=== PATIENT | male | born 1995 | race Caucasian/White ===

== ENCOUNTER 2016-10-11 19:42 | Observation (INO) | payer OTHER ==
[~2016-10-11] VITALS: Ht 190.5 cm; Wt 77.0 kg
--- NOTE | 2016-10-11 20:05 | PD ---
HPI Chief Complaint: abdominal pain Time Seen by Provider: 19:56 Travel History International Travel<30 days: No Contact w/Intl Traveler<30days: No History of Present Illness HPI This is a 21 year old male who presents to the emergency department with 30 minutes of vomiting and subsequently developed left upper quadrant abdominal pain. The pain is 6/10, constant, sharp, non-radiating. The patient is here from [facility] and is currently in a detoxification program. He does have GERD and he took milk of magnesia and zofran but his symptoms did not improve. He had a normal bowel movement earlier today. He denies any fevers or chills. PFSH Past Medical History Medical History: Denies Significant Hx Social History Tobacco Use: Yes (cocaine, marijuana, xanax) Substance Use: Yes Allergies-Medications (Allergen,Severity, Reaction): Coded Allergies: No Known Allergies (Unverified , 10/11/16) Reported Meds & Prescriptions Reported Meds & Active Scripts Active Reported Zoloft (Sertraline HCl) 100 Mg Tab 100 Mg PO DAILY Review of Systems Except as stated in HPI: all other systems reviewed are Neg Physical Exam Narrative GENERAL:Well appearing SKIN: Diaphoretic HEAD: Atraumatic. Normocephalic. EYES: Pupils equal and round. No injection or drainage. ENT: Moist mucous membranes NECK: Trachea midline. CARDIOVASCULAR: Regular rate and rhythm. No murmur appreciated. RESPIRATORY: Clear to auscultation. Breath sounds equal bilaterally. GASTROINTESTINAL: Abdomen soft, Tender to palpation in the left upper quadrant with guarding. MUSCULOSKELETAL: No obvious deformities. NEUROLOGICAL: Awake and alert. No obvious cranial nerve deficits. Moving all extremities PSYCHIATRIC: Appropriate mood and affect; insight and judgment normal. Data Data Last Documented VS Vital Signs Date Time Temp Pulse Resp B/P (MAP) Pulse Ox O2 Delivery O2 Flow Rate FiO2 10/12/16 01:00 77 16 118/61 (80) 97 Room Air 10/11/16 20:08 99.1 Orders Orders Chest, Single Ap (10/11/16 ) Complete Blood Count With Diff (10/11/16 20:05) Comprehensive Metabolic Panel (10/11/16 20:05) ^ Insert Iv (10/11/16 20:05) Lipase (10/11/16 20:05) Al-Mag Hy-Si 40-40-4 Mg/Ml Liq (Mag-Al P (10/11/16 20:15) Lidocaine 2% Viscous (Xylocaine 2% Visco (10/11/16 20:15) Skhkx-Giissl-Hyhyqh-Pb Liq ( Liq (10/11/16 20:15) Sodium Chlor 0.9% 1000 Ml Inj (Ns 1000 M (10/11/16 20:15) Ct Abd/Pel W Iv Contrast(Rout) (10/11/16 ) Hydromorphone Pf Inj (Dilaudid Pf Inj) (10/11/16 22:45) Iohexol 350 Inj (Omnipaque 350 Inj) (10/11/16 23:11) Act Partial Throm Time (Ptt) (10/12/16 00:10) Prothrombin Time / Inr (Pt) (10/12/16 00:10) Acetaminophen (Tylenol) (10/12/16 01:00) Admit Order (Ed Use Only) (10/12/16 01:06) Labs Laboratory Tests Test 10/11/16 20:15 10/12/16 00:45 White Blood Count 11.4 TH/MM3 Red Blood Count 5.28 MIL/MM3 Hemoglobin 15.9 GM/DL Hematocrit 46.1 % Mean Corpuscular Volume 87.3 FL Mean Corpuscular Hemoglobin 30.1 PG Mean Corpuscular Hemoglobin Concent 34.4 % Red Cell Distribution Width 12.7 % Platelet Count 204 TH/MM3 Mean Platelet Volume 8.3 FL Neutrophils (%) (Auto) 62.8 % Lymphocytes (%) (Auto) 28.2 % Monocytes (%) (Auto) 6.7 % Eosinophils (%) (Auto) 1.4 % Basophils (%) (Auto) 0.9 % Neutrophils # (Auto) 7.1 TH/MM3 Lymphocytes # (Auto) 3.2 TH/MM3 Monocytes # (Auto) 0.8 TH/MM3 Eosinophils # (Auto) 0.2 TH/MM3 Basophils # (Auto) 0.1 TH/MM3 CBC Comment AUTO DIFF Differential Total Cells Counted 100 Neutrophils % (Manual) 53 % Band Neutrophils % 15 % Lymphocytes % 26 % Monocytes % 5 % Other Cells % 1 % Neutrophils # (Manual) 7.8 TH/MM3 Differential Comment FINAL DIFF MANUAL Atypical Lymphocytes % Platelet Estimate NORMAL Platelet Morphology Comment NORMAL Blood Urea Nitrogen 12 MG/DL Creatinine 1.12 MG/DL Random Glucose 100 MG/DL Total Protein 7.4 GM/DL Albumin 3.7 GM/DL Calcium Level 8.7 MG/DL Alkaline Phosphatase 100 U/L Aspartate Amino Transf (AST/SGOT) 48 U/L Alanine Aminotransferase (ALT/SGPT) 117 U/L Total Bilirubin 0.7 MG/DL Sodium Level 136 MEQ/L Potassium Level 4.2 MEQ/L Chloride Level 102 MEQ/L Carbon Dioxide Level 27.5 MEQ/L Anion Gap 7 MEQ/L Estimat Glomerular Filtration Rate 81 ML/MIN Lipase 72 U/L [facility] Medical Decision Making Medical Screen Exam Complete: Yes Emergency Medical Condition: Yes Interpretation(s) Mild leukocytosis 15% bandemia Mild transaminitis Last 24 hours Impressions Chest X-Ray 10/11/16 0000 Signed Impressions: Service Date/Time: Tuesday, October 11, 2016 20:05 - CONCLUSION: No acute disease. Kris Perez MD Abdomen/Pelvis CT 10/11/16 0000 Signed Impressions: Service Date/Time: Tuesday, October 11, 2016 23:11 - CONCLUSION: 1. Small amount of dense ascites concerning for hemoperitoneum. No definite evidence for active contrast extravasation to suggest active bleeding although arterial phase imaging was not performed. 2. No additional acute abnormality identified. 3. Splenomegaly. Findings were personally discussed with Dr. Rock at the time of this procedure. Balta Sanchez MD Differential Diagnosis Perforated ulcer, gastritis, pancreatitis Narrative Course This is a 21 year old male who presents to the emergency department with sudden onset abdominal pain and vomiting. Patient is quite tender particularly in the epigastrium and left upper quadrant. Labs are obtained which demonstrated 15% bandemia of uncertain etiology. Patient otherwise doesn't appear septic. CT was obtained to rule out a perforated ulcer. The radiologist called me and told me that the patient has dense ascites in the abdomen concerning for hemoperitoneum. Patient was reassessed and has no evidence of bruising and no history of trauma. He has normal vital signs at this time. I spoke to Dr. Perry regarding the patient. He requested I discussed the case with surgery. I spoke to Dr. Lundberg who was on-call for trauma surgery. He similarly was reassured by the patient's vital signs and absence of history of trauma. He felt like it would be reasonable to observe the patient overnight and ensure that his hemoglobin and his vital signs stayed stable. We can obtain a general surgery consultation in the morning unless the patient deteriorates. Physician Communication Physician Communication Discussed with Dr. Perry Diagnosis Primary Impression: Abdominal pain Qualified Codes: R10.84 - Generalized abdominal pain Admitting Information Admitting Physician Requests: Observation Yashira Rock MD Oct 11, 2016 20:05
[2016-10-11 20:08] VITALS: BP 125/68; PULSE 88; RESP 18; TEMP 99.1; O2SAT 97
[2016-10-11] MEDS ORDERED: ZOLO100T PO (20:13)
[2016-10-11] MEDS ORDERED: LIDOCAINE VISCOUS 2% SOLN 15 ML UDC PO ONE (20:15)
[2016-10-11] MEDS ORDERED: ALUMINUM/MAGNESIUM/SIMETH 30 ML CUP PO ONE (20:15)
[2016-10-11] MEDS ORDERED: ATROPINE/SCOPOLAM/HYOSCYAM/PB ELIXIR 10 ML CUP PO ONE (20:15)
[2016-10-11] MEDS ORDERED: SODIUM CHLOR 0.9% 1000 ML INJ 1,000 ML IV SCH (20:15)
--- NOTE | 2016-10-11 20:36 | RADRPT ---
EXAM DATE/TIME: 10/11/2016 20:05 [facility] COMPARISON: No previous studies available for comparison. INDICATIONS : Short of breath MEDICAL HISTORY : Acid reflux disease SURGICAL HISTORY : None. ENCOUNTER: Initial ACUITY: 1 day PAIN SCORE: 6/10 LOCATION: Bilateral chest FINDINGS: A single view of the chest demonstrates the lungs to be symmetrically aerated without evidence of mas s, infiltrate or effusion. The cardiomediastinal contours are unremarkable. Osseous structures are intact. CONCLUSION: No acute disease. Kris Perez MD on October 11, 2016 at 20:34 Board Certified Radiologist. This report was verified electronically.
[2016-10-11 20:39] LABS: AUTOMATED NEUTROPHIL # 7.1 TH/MM3 (1.8-7.7); BASOPHIL # 0.1 TH/MM3 (0-0.2); BASOPHIL % 0.9 % (0.0-2.0); EOSINOPHIL # 0.2 TH/MM3 (0-0.4); EOSINOPHIL % 1.4 % (0.0-4.0); HEMATOCRIT 46.1 % (39.0-51.0); LYMPH % 28.2 % (9.0-44.0); LYMPHOCYTE # 3.2 TH/MM3 (1.0-4.8); MEAN CELL VOLUME 87.3 FL (80.0-100.0); MEAN CORPUSCULAR HEMOGLOBIN 30.1 PG (27.0-34.0); MEAN CORPUSCULAR HGB CONC 34.4 % (32.0-36.0); MONO % 6.7 % (0.0-8.0); NEUT % 62.8 % (16.0-70.0); PLATELET COUNT 204 TH/MM3 (150-450); RED BLOOD COUNT 5.28 MIL/MM3 (4.50-5.90); RED CELL DISTRIBUTION WIDTH 12.7 % (11.6-17.2); WHITE BLOOD COUNT 11.4 TH/MM3 (4.0-11.0)
[2016-10-11 20:40] LABS: HEMO FLAGS AUTO DIFF
[2016-10-11 20:55] LABS: ANION GAP 7 MEQ/L (5-15); AST (GOT) 48 U/L (15-37); BICARBONATE 27.5 MEQ/L (21.0-32.0); BLOOD UREA NITROGEN 12 MG/DL (7-18); CHLORIDE 102 MEQ/L (98-107); GLOMERULAR FILTRATION RATE 81 ML/MIN (>89); POTASSIUM 4.2 MEQ/L (3.5-5.1); SODIUM (NA) 136 MEQ/L (136-145)
[2016-10-11 20:56] LABS: ALT (GPT) 117 U/L (12-78)
[2016-10-11 20:58] LABS: ALKALINE PHOSPHATASE 100 U/L (45-117); TOTAL BILIRUBIN ADULT 0.7 MG/DL (0.2-1.0)
[2016-10-11 21:42] LABS: BANDS 15 % (0-6); NEUTROPHIL # MANUAL DIFF 7.8 TH/MM3 (1.8-7.7); POLYS (SEG NEUTROPHILS) 53 % (16-70); WBC DIFF SAMPLE 100
[2016-10-11 21:44] LABS: PLATELET ESTIMATE SMEAR NORMAL (NORMAL); PLATELET MORPHOLOGY NORMAL (NORMAL)
[2016-10-11 21:45] LABS: SCAN/DIFF FINAL DIFF MANUAL
[2016-10-11 22:00] VITALS: BP 130/77; PULSE 80; RESP 16; O2SAT 98
[2016-10-11] MEDS ORDERED: HYDROmorphone HCL PF 1 MG/ML VIAL IV PUSH ONE (22:45)
[2016-10-11] MEDS ORDERED: IOHEXOL 350 MG/ML 10 ML VIAL (for RAD DIAG) IVCONTRAST ONE (23:11)
--- NOTE | 2016-10-12 00:09 | RADRPT ---
EXAM DATE/TIME: 10/11/2016 23:11 [facility] COMPARISON: No previous studies available for comparison. INDICATIONS : Left upper quadrant pain. IV CONTRAST: 96 cc Omnipaque 350 (iohexol) IV ORAL CONTRAST: No oral contrast ingested. RADIATION DOSE: 5.77 CTDIvol (mGy) MEDICAL HISTORY : Substance abuse SURGICAL HISTORY : None. ENCOUNTER: Initial ACUITY: 1 day PAIN SCALE: 7/10 LOCATION: abdomen TECHNIQUE: Volumetric scanning of the abdomen and pelvis was performed. Using automated exposure control and ad justment of the mA and/or kV according to patient size, radiation dose was kept as low as reasonably achievable to obtain optimal diagnostic quality images. DICOM format image data is available electro nically for review and comparison. FINDINGS: LOWER LUNGS: The visualized lower lungs are clear. LIVER: Homogeneous density without lesion. There is no dilation of the biliary tree. No calcified gallston es. Small amount of dense ascites in the abdomen primarily surrounding the liver, spleen, extending t o the pelvis. SPLEEN: Enlarged measuring up to 16 cm. PANCREAS: Within normal limits. KIDNEYS: Normal in size and shape. There is no mass, stone or hydronephrosis. ADRENAL GLANDS: Within normal limits. VASCULAR: There is no aortic aneurysm. BOWEL/MESENTERY: The stomach, small bowel, and colon demonstrate no acute abnormality. There is no free intraperitone al air or fluid. Appendix is not directly visualized. ABDOMINAL WALL: Within normal limits. RETROPERITONEUM: There is no lymphadenopathy. BLADDER: No wall thickening or mass. REPRODUCTIVE: Within normal limits. INGUINAL: There is no lymphadenopathy or hernia. MUSCULOSKELETAL: Within normal limits for patient age. CONCLUSION: 1. Small amount of dense ascites concerning for hemoperitoneum. No definite evidence for active contr ast extravasation to suggest active bleeding although arterial phase imaging was not performed. 2. No additional acute abnormality identified. 3. Splenomegaly. Findings were personally discussed with Dr. Rock at the time of this procedure. Balta Sanchez MD on October 11, 2016 at 23:57 Board Certified Radiologist. This report was verified electronically.
[2016-10-12 01:00] VITALS: BP 118/61; PULSE 77; RESP 16; O2SAT 97
[2016-10-12] MEDS ORDERED: ACETAMINOPHEN 500 MG CPLT PO ONE (01:00)
[2016-10-12 01:19] LABS: INTERNATIONAL NORMALIZED RATIO 1.1 RATIO
[2016-10-12 01:52] LABS: APTT (PATIENT) 26.4 SEC (24.3-30.1)
[2016-10-12] MEDS ORDERED: ONDANSETRON HCL 4 MG/2 ML VIAL IVP PRN (03:45)
[2016-10-12] MEDS ORDERED: ACETAMINOPHEN 325 MG TAB PO PRN (03:45)
[2016-10-12] MEDS ORDERED: NALOXONE HCL 0.4 MG/ML AMP IV PRN (03:45)
--- NOTE | 2016-10-12 04:44 | HHI.HP ---
[facility] Primary Care Physician No Primary Care Physician Admission Diagnosis abdominal pain Diagnoses: (1) Abdominal pain Chief Complaint: Abdominal pain Travel History International Travel<30 Days: No Contact w/Intl Traveler <30 Da: No Traveled to Known Affected Are: No History of Present Illness Written by Leslie Thapa, acting as scribe for Dr. Perry on 10/12/16 at 04:43. The patient is seen in the CDU. He reports that he has been having a lot of severe left upper quadrant, to the left of the epigastric area, pain. It is so severe that he is unable to lay down. The pain is worse with deep breaths. The only relief he is able to get is when he is sitting up straight. Initially , he denies nausea and vomiting but when he is told that the ER physician said he had nausea and vomiting, he then changed his story and said he had been nauseated and had vomited. Denies diarrhea, shortness of breath, fever, or chills. Denies hematemesis, hematuria. Denies any recent fights/physical altercations. He is currently in detox at [facility]. He states he has only one day to go to complete detox. After the visit, he asks for something for his pain. When he is told he'll not get any narcotic medications, he abruptly states that he would like to leave. He asks to be signed out. He is instructed that he cannot be discharged as he has not been medically cleared. He is instructed that a gastroenterology consult is recommended. He says he does not want to see a clinical education manager and would like to leave. I told him he could not be signed out/discharged but could leave AMA: AGAINST MEDICAL ADVICE. He said that is what he wants to do and requested that we contact Jeb Sandoval "to come pick me (him) up". I advised him that [facility] may not accept him as he is not medically cleared. He argues, "they'll come get me". Situation discussed with charge nurse Jimbo and Jeb Sandoval will be contacted. Review of Systems Except as stated in HPI: all other systems reviewed are Neg Past Family Social History Past Medical History GERD Polysubstance abuse Tobacco Abuse . Past Surgical History denies any prior surgeries . Reported Medications Reported Meds & Active Scripts Active Reported Zoloft (Sertraline HCl) 100 Mg Tab 100 Mg PO DAILY . Allergies: Coded Allergies: No Known Allergies (Unverified , 10/11/16) Active Ordered Medications Current Medications Al Hydrox/Mg Hydrox/Simethicone (Mag-Al Plus Susp Liq) 30 ml ONCE ONCE PO Last administered on 10/11/16 21:05; Start 10/11/16 at 20:15; Stop 10/11/16 at 20: 16; Status DC Lidocaine HCl (Xylocaine 2% Viscous) 15 ml ONCE ONCE PO Last administered on 21:05; Start 10/11/16 at 20:15; Stop 10/11/16 at 20:16; Status DC Atropine/Hyoscyam/ Phenobarb/Scopol ( Liq) 10 ml ONCE ONCE PO Last administered on 10/11/16 21:05; Start 10/11/16 at 20:15; Stop 10/11/16 at 20:16; Status DC Sodium Chloride 1,000 ml @ 999 mls/hr Q1H1M IV Last administered on 10/11/16 21:05; Start 10/11/16 at 20:15; Stop 10/11/16 at 21:15; Status DC Hydromorphone HCl (Dilaudid Pf Inj) 1 mg ONCE ONCE IV PUSH ; Start 10/11/16 at 22:45; Stop 10/12/16 at 01:00; Status DC Iohexol (Omnipaque 350 Inj) 96 ml STK-MED ONCE IVCONTRAST Last administered on 10/11/16 23:11; Start 10/11/16 at 23:11; Stop 10/11/16 at 23:19; Status DC Acetaminophen (Tylenol) 500 mg ONCE ONCE PO Last administered on 10/12/16 01: 05; Start 10/12/16 at 01:00; Stop 10/12/16 at 01:01; Status DC Acetaminophen (Tylenol) 650 mg Q4H PRN PO TEMP > 100.4; Start 10/12/16 at 03:45 Ondansetron HCl (Zofran Inj) 4 mg Q6H PRN IVP NAUSEA OR VOMITING; Start at 03:45 Naloxone HCl (Narcan Inj) 0.4 mg UNSCH PRN IV SEE LABEL COMMENTS; Start at 03:45 . Family History denies any family illnesses . Social History Tobacco: smokes 1 PPD Alcohol: denies Xanax, cocaine, and marijuana - denies IVDA . Physical Exam Vital Signs Vital Signs Date Time Temp Pulse Resp B/P (MAP) Pulse Ox O2 Delivery O2 Flow Rate FiO2 10/12/16 01:00 77 16 118/61 (80) 97 Room Air 10/11/16 22:00 80 16 130/77 (94) 98 Room Air 10/11/16 20:08 99.1 88 18 125/68 (87) 97 Physical Exam GENERAL: This is a well-nourished, well-developed patient, very agitated at end of visit. SKIN: No rashes, ecchymoses or lesions. Cool and dry. HEAD: Atraumatic. Normocephalic. EYES: No scleral icterus. No injection or drainage. ENT: Nose without bleeding, purulent drainage. NECK: Trachea midline. No JVD or lymphadenopathy. CARDIOVASCULAR: Regular rate and rhythm without murmurs, gallops, or rubs. RESPIRATORY: Clear to auscultation. Breath sounds equal bilaterally. No wheezes , rales, or rhonchi. GASTROINTESTINAL: Abdomen soft, tender in epigastric area, nondistended. No guarding. + bowel sounds. MUSCULOSKELETAL: Extremities without clubbing, cyanosis, or edema. No calf tenderness. NEUROLOGICAL: Awake and alert. Motor and sensory grossly within normal limits. Normal speech. . Laboratory Laboratory Tests Test 10/11/16 20:15 10/12/16 00:45 White Blood Count 11.4 Red Blood Count 5.28 Hemoglobin 15.9 Hematocrit 46.1 Mean Corpuscular Volume 87.3 Mean Corpuscular Hemoglobin 30.1 Mean Corpuscular Hemoglobin Concent 34.4 Red Cell Distribution Width 12.7 Platelet Count 204 Mean Platelet Volume 8.3 Neutrophils (%) (Auto) 62.8 Lymphocytes (%) (Auto) 28.2 Monocytes (%) (Auto) 6.7 Eosinophils (%) (Auto) 1.4 Basophils (%) (Auto) 0.9 Neutrophils # (Auto) 7.1 Lymphocytes # (Auto) 3.2 Monocytes # (Auto) 0.8 Eosinophils # (Auto) 0.2 Basophils # (Auto) 0.1 CBC Comment AUTO DIFF Differential Total Cells Counted 100 Neutrophils % (Manual) 53 Band Neutrophils % 15 Lymphocytes % 26 Monocytes % 5 Other Cells % 1 Neutrophils # (Manual) 7.8 Differential Comment FINAL DIFF MANUAL Atypical Lymphocytes Platelet Estimate NORMAL Platelet Morphology Comment NORMAL Blood Urea Nitrogen 12 Creatinine 1.12 Random Glucose 100 Total Protein 7.4 Albumin 3.7 Calcium Level 8.7 Alkaline Phosphatase 100 Aspartate Amino Transf (AST/SGOT) 48 Alanine Aminotransferase (ALT/SGPT) 117 Total Bilirubin 0.7 Sodium Level 136 Potassium Level 4.2 Chloride Level 102 Carbon Dioxide Level 27.5 Anion Gap 7 Estimat Glomerular Filtration Rate 81 Lipase 72 Prothrombin Time 12.0 Prothromb Time International Ratio 1.1 Activated Partial Thromboplast Time 26.4 Result Diagram: 10/11/16201410/11/162014 Imaging Last Impressions Chest X-Ray 10/11/16 0000 Signed Impressions: Service Date/Time: Tuesday, October 11, 2016 20:05 - CONCLUSION: No acute disease. Kris Perez MD Abdomen/Pelvis CT 10/11/16 0000 Signed Impressions: Service Date/Time: Tuesday, October 11, 2016 23:11 - CONCLUSION: 1. Small amount of dense ascites concerning for hemoperitoneum. No definite evidence for active contrast extravasation to suggest active bleeding although arterial phase imaging was not performed. 2. No additional acute abnormality identified. 3. Splenomegaly. Findings were personally discussed with Dr. Rock at the time of this procedure. Balta Sanchez MD . Caprini VTE Risk Assessment Caprini VTE Risk Assessment: No/Low Risk (score <= 1) Caprini Risk Assessment Model Point Value = 1 Point Value = 2 Point Value = 3 Point Value = 5 Age 41-60 Minor surgery BMI > 25 kg/m2 Swollen legs Varicose veins or History of unexplained or recurrent spontaneous Oral contraceptives or hormone replacement Sepsis (< 1 month) Serious lung disease, including pneumonia (< 1 month) Abnormal pulmonary function Acute myocardial infarction Congestive heart failure (< 1 month) History of inflammatory bowel disease Medical patient at bed rest Age 61-74 Arthroscopic surgery Major open surgery (> 45 min) Laparoscopic surgery (> 45 min) Malignancy Confined to bed (> 72 hours) Immobilizing plaster cast Central venous access Age >= 75 History of VTE Family history of VTE Factor V Leiden Prothrombin [id number] Lupus anticoagulant Anticardiolipin antibodies Elevated serum homocysteine Heparin-induced thrombocytopenia Other congenital or acquired thrombophilia Stroke (< 1 month) Elective arthroplasty Hip, pelvis, or leg fracture Acute spinal cord injury (< 1 month) Prophylaxis Regimen Total Risk Factor Score Risk Level Prophylaxis Regimen 0-1 Low Early ambulation 2 Moderate Order ONE of the following: *Sequential Compression Device (SCD) *Heparin 5000 units SQ BID 3-4 Higher Order ONE of the following medications: *Heparin 5000 units SQ TID *Enoxaparin/Lovenox 40 mg SQ daily (WT < 150 kg, CrCl > 30 mL/min) *Enoxaparin/Lovenox 30 mg SQ daily (WT < 150 kg, CrCl > 10-29 mL/min) *Enoxaparin/Lovenox 30 mg SQ BID (WT < 150 kg, CrCl > 30 mL/min) AND/OR *Sequential Compression Device (SCD) 5 or more Highest Order ONE of the following medications: *Heparin 5000 units SQ TID (Preferred with Epidurals) *Enoxaparin/Lovenox 40 mg SQ daily (WT < 150 kg, CrCl > 30 mL/min) *Enoxaparin/Lovenox 30 mg SQ daily (WT < 150 kg, CrCl > 10-29 mL/min) *Enoxaparin/Lovenox 30 mg SQ BID (WT < 150 kg, CrCl > 30 mL/min) AND *Sequential Compression Device (SCD) Assessment and Plan Problem List: (1) Abdominal pain ICD Code: R10.9 - Unspecified abdominal pain Status: Acute Assessment and Plan 21 y/o male in a drug treatment program at [facility] who presented to ED for evaluation of abdominal pain Abdominal Pain - Consult gastroenterology - Nothing by mouth - Abdomen pelvis CT with small amount of dense ascites concerning for hemoperitoneum. No definite evidence for active contrast extravasation to suggest active bleeding although arterial phase imaging was not done. Splenomegaly. - Zofran 4 mg IV q6h PRN nausea/vomiting Substance abuse - advised to continue in treatment - some drug seeking behaviors displayed - do not recommend narcotic administration Leukocytosis with left shift of undetermined significance - NS bolus x 1 liter given in ED - Repeat CBC - follow results Discussed Condition With ER physician, charge nurse, and patient This note was transcribed by scribe [Leslie Thapa]. I, Dr. Rod Perry personally performed the history, physical exam, and medical decision making; and confirmed the accuracy of the information in the transcribed note. Authenticated by Dr. Rod Perry on 10/12/16 at 05:19. Problem Qualifiers (1) Abdominal pain: Qualified Codes: R10.84 - Generalized abdominal pain Leslie Thapa Oct 12, 2016 04:44 Rod Perry MD Oct 14, 2016 07:39
[2016-10-12 05:36] VITALS: BP 127/74; PULSE 61; RESP 16; TEMP 98.4; O2SAT 100
[2016-10-12 07:34] VITALS: BP 118/61; PULSE 61; RESP 18; TEMP 98; O2SAT 99
--- NOTE | 2016-10-12 07:59 | PD.CONS ---
HPI History of Present Illness This is a 21 year old male who presented to the emergency room for evaluation of abdominal pain that began around 8pm last night. His pain is in the left upper quadrant and he describes this as a constant sharp, stabbing pain that radiates up into his chest. He reports that he has a problem with acid reflux and takes Zantac as needed. He was having significant nausea and vomiting consisting of undigested food and bilious material, but no hematemesis Tuesday night and earlier yesterday. The pain then began around 8pm and he came to the ER for further evaluation. He denies any constipation, diarrhea, melena, or hematochezia. He denies any trauma to his abdomen. He does not take ibuprofen or aleve at home. He denies any history of peptic ulcer disease. PFSH Past Medical History GERD Polysubstance abuse Tobacco Abuse Past Surgical History Denies Coded Allergies: No Known Allergies (Unverified , 10/11/16) Medications Allergies Coded Allergies Type Severity Reaction Last Updated Verified No Known Allergies 10/11/16 No Active Scripts Medications Dose Route/Sig Max Daily Dose Days Date Category Zoloft (Sertraline HCl) 100 Mg Tab 100 Mg PO DAILY 10/11/16 Reported Family History Denies any significant family history Social History Tobacco smokes 1/2 PPD Alcohol: denies Xanax, cocaine, and marijuana - denies IVDA Review of Systems Constitutional: DENIES: Fatigue, Fever, Weight loss, Chills Respiratory: DENIES: Cough Cardiovascular: COMPLAINS OF: Chest pain Gastrointestinal: COMPLAINS OF: Abdominal pain, Nausea, Vomiting, Heartburn, DENIES: Black stools, Bloody stools, Constipation, Diarrhea Integumentary: DENIES: Abnormal pigmentation Hematologic/lymphatic: DENIES: Bruising Neurologic: DENIES: Headache Psychiatric: DENIES: Confusion GI Exam Vitals I&O Vital Signs Date Time Temp Pulse Resp B/P (MAP) Pulse Ox O2 Delivery O2 Flow Rate FiO2 10/12/16 07:34 98.0 61 18 118/61 (80) 99 10/12/16 05:36 98.4 61 16 127/74 (91) 100 10/12/16 01:00 77 16 118/61 (80) 97 Room Air 10/11/16 22:00 80 16 130/77 (94) 98 Room Air 10/11/16 20:08 99.1 88 18 125/68 (87) 97 I/O 10/11/16 10/11/16 10/11/16 10/12/16 10/12/16 10/12/16 07:00 15:00 23:00 07:00 15:00 23:00 Intake Total 1000 ml Balance 1000 ml Intake IV Total 1000 ml Imaging Last Impressions Chest X-Ray 10/11/16 0000 Signed Impressions: Service Date/Time: Tuesday, October 11, 2016 20:05 - CONCLUSION: No acute disease. Kris Perez MD Abdomen/Pelvis CT 10/11/16 0000 Signed Impressions: Service Date/Time: Tuesday, October 11, 2016 23:11 - CONCLUSION: 1. Small amount of dense ascites concerning for hemoperitoneum. No definite evidence for active contrast extravasation to suggest active bleeding although arterial phase imaging was not performed. 2. No additional acute abnormality identified. 3. Splenomegaly. Findings were personally discussed with Dr. Rock at the time of this procedure. Balta Sanchez MD Laboratory Test 10/11/16 20:15 10/12/16 00:45 White Blood Count 11.4 TH/MM3 Red Blood Count 5.28 MIL/MM3 Hemoglobin 15.9 GM/DL Hematocrit 46.1 % Mean Corpuscular Volume 87.3 FL Mean Corpuscular Hemoglobin 30.1 PG Mean Corpuscular Hemoglobin Concent 34.4 % Red Cell Distribution Width 12.7 % Platelet Count 204 TH/MM3 Mean Platelet Volume 8.3 FL Neutrophils (%) (Auto) 62.8 % Lymphocytes (%) (Auto) 28.2 % Monocytes (%) (Auto) 6.7 % Eosinophils (%) (Auto) 1.4 % Basophils (%) (Auto) 0.9 % Neutrophils # (Auto) 7.1 TH/MM3 Lymphocytes # (Auto) 3.2 TH/MM3 Monocytes # (Auto) 0.8 TH/MM3 Eosinophils # (Auto) 0.2 TH/MM3 Basophils # (Auto) 0.1 TH/MM3 CBC Comment AUTO DIFF Differential Total Cells Counted 100 Neutrophils % (Manual) 53 % Band Neutrophils % 15 % Lymphocytes % 26 % Monocytes % 5 % Other Cells % 1 % Neutrophils # (Manual) 7.8 TH/MM3 Differential Comment FINAL DIFF MANUAL Atypical Lymphocytes % Platelet Estimate NORMAL Platelet Morphology Comment NORMAL Blood Urea Nitrogen 12 MG/DL Creatinine 1.12 MG/DL Random Glucose 100 MG/DL Total Protein 7.4 GM/DL Albumin 3.7 GM/DL Calcium Level 8.7 MG/DL Alkaline Phosphatase 100 U/L Aspartate Amino Transf (AST/SGOT) 48 U/L Alanine Aminotransferase (ALT/SGPT) 117 U/L Total Bilirubin 0.7 MG/DL Sodium Level 136 MEQ/L Potassium Level 4.2 MEQ/L Chloride Level 102 MEQ/L Carbon Dioxide Level 27.5 MEQ/L Anion Gap 7 MEQ/L Estimat Glomerular Filtration Rate 81 ML/MIN Lipase 72 U/L Prothrombin Time 12.0 SEC Prothromb Time International Ratio 1.1 RATIO Activated Partial Thromboplast Time 26.4 SEC Physical Examination HEENT: Normocephalic; atraumatic; no jaundice. CHEST: CTA CARDIAC: RRR ABDOMEN: Soft, nondistended, nontender; no hepatosplenomegaly; bowel sounds are present in all four quadrants. EXTREMITIES: No clubbing, cyanosis, or edema. SKIN: Normal; no rash; no jaundice. 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 Assessment and Plan Plan ASSESSMENT: - Abdominal pain, N/V. States that he has severe GERD (takes Zantac) and has been going through detox at [facility]. He started having persistent n/v with bilious material and then developed LUQ pain last night. CT as below. No ibuprofen use. No hx pud. denies any recent trauma to abdomen. Will plan for EGD today. NPO. PPI. - Elevated LFTs. Mild elevation of transaminases. Check hepatitis profile. - Abnormal imaging with possible hemoperitoneum. CT scan abdomen and pelvis (10/11/16)----> Small amount of dense ascites concerning for hemoperitoneum. No definite evidence for active contrast extravasation to suggest active bleeding although arterial phase imaging was not performed. No additional acute abnormality identified. Splenomegaly. Findings were personally discussed with Dr. Rock at the time of this procedure. - GERD. Takes zantac at home - PSA, pt reports he was finishing up tx at [facility] for detox- cocaine , marijuana, and xanax. PLAN: - Plan for egd today - Obtain consents - NPO - Add protonix 40mg iv daily - Hepatitis profile - CBC, CMP in am - Further recommendations to follow based on results of above - Pt seen and examined by Dr. Castano and myself and this note is written on his behalf Anju Gordillo Oct 12, 2016 07:59
[2016-10-12] MEDS ORDERED: MIDAZOLAM HCL 2 MG/2 ML VIAL ONE ×2 (10:44→11:19)
[2016-10-12] MEDS ORDERED: PROPOFOL 200 MG/20 ML AMP IV PUSH ONE (11:01)
--- NOTE | 2016-10-12 11:16 | HHI.GIFU ---
Subjective Remarks EGD performed with biopsies. Pt has GERD with erosion in distal esophagus. Also has gastritis in body and antrum. Biopsy taken in both places. Duodenum normal. No bleeding lesions. No ulcers Objective Vitals I&O Vital Signs Date Time Temp Pulse Resp B/P (MAP) Pulse Ox O2 Delivery O2 Flow Rate FiO2 10/12/16 07:34 98.0 61 18 118/61 (80) 99 10/12/16 05:36 98.4 61 16 127/74 (91) 100 10/12/16 01:00 77 16 118/61 (80) 97 Room Air 10/11/16 22:00 80 16 130/77 (94) 98 Room Air 10/11/16 20:08 99.1 88 18 125/68 (87) 97 I/O 10/11/16 10/11/16 10/11/16 10/12/16 10/12/16 10/12/16 07:00 15:00 23:00 07:00 15:00 23:00 Intake Total 1000 ml 300 ml Balance 1000 ml 300 ml Intake IV Total 1000 ml Other 300 ml Laboratory Laboratory Tests Test 10/11/16 20:15 10/12/16 00:45 White Blood Count 11.4 Red Blood Count 5.28 Hemoglobin 15.9 Hematocrit 46.1 Mean Corpuscular Volume 87.3 Mean Corpuscular Hemoglobin 30.1 Mean Corpuscular Hemoglobin Concent 34.4 Red Cell Distribution Width 12.7 Platelet Count 204 Mean Platelet Volume 8.3 Neutrophils (%) (Auto) 62.8 Lymphocytes (%) (Auto) 28.2 Monocytes (%) (Auto) 6.7 Eosinophils (%) (Auto) 1.4 Basophils (%) (Auto) 0.9 Neutrophils # (Auto) 7.1 Lymphocytes # (Auto) 3.2 Monocytes # (Auto) 0.8 Eosinophils # (Auto) 0.2 Basophils # (Auto) 0.1 CBC Comment AUTO DIFF Differential Total Cells Counted 100 Neutrophils % (Manual) 53 Band Neutrophils % 15 Lymphocytes % 26 Monocytes % 5 Other Cells % 1 Neutrophils # (Manual) 7.8 Differential Comment FINAL DIFF MANUAL Atypical Lymphocytes Platelet Estimate NORMAL Platelet Morphology Comment NORMAL Blood Urea Nitrogen 12 Creatinine 1.12 Random Glucose 100 Total Protein 7.4 Albumin 3.7 Calcium Level 8.7 Alkaline Phosphatase 100 Aspartate Amino Transf (AST/SGOT) 48 Alanine Aminotransferase (ALT/SGPT) 117 Total Bilirubin 0.7 Sodium Level 136 Potassium Level 4.2 Chloride Level 102 Carbon Dioxide Level 27.5 Anion Gap 7 Estimat Glomerular Filtration Rate 81 Lipase 72 Prothrombin Time 12.0 Prothromb Time International Ratio 1.1 Activated Partial Thromboplast Time 26.4 Physical Exam HEENT: Pupils round and reactive to light; normocephalic; atraumatic; no jaundice. Throat is clear. NECK: Neck is supple, no JVD, no lymphadenopathy. CHEST: Chest is clear to auscultation and percussion. CARDIAC: Regular rate and rhythm with no murmur gallop or rubs. ABDOMEN: Abdomen tender in left side. EXTREMITIES: No clubbing, cyanosis, or edema. SKIN: Normal; no rash; no jaundice. 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 Assessment and Plan Plan ASSESSMENT: - Abdominal pain, N/V. States that he has severe GERD (takes Zantac) and has been going through detox at [facility]. He started having persistent n/v with bilious material and then developed LUQ pain last night. CT as below. No ibuprofen use. No hx pud. denies any recent trauma to abdomen. Will plan for EGD today. NPO. PPI. - Elevated LFTs. Mild elevation of transaminases. Check hepatitis profile. - Abnormal imaging with possible hemoperitoneum. CT scan abdomen and pelvis (10/11/16)----> Small amount of dense ascites concerning for hemoperitoneum. No definite evidence for active contrast extravasation to suggest active bleeding although arterial phase imaging was not performed. No additional acute abnormality identified. Splenomegaly. Findings were personally discussed with Dr. Rock at the time of this procedure. - GERD. Takes zantac at home - PSA, pt reports he was finishing up tx at [facility] for detox- cocaine , marijuana, and xanax. - EGD showed gastritis and gerd PLAN: - Clear liquid diet - Add protonix 40mg iv daily - Hepatitis profile - CBC, CMP in am - Further recommendations to follow based on results of above - General surgery consult because of apparent blood in peritoneum. If cleared by general surgery OK to discharge. Clayton Castano MD Oct 12, 2016 11:16
[2016-10-12 12:10] VITALS: BP 120/64; PULSE 71; RESP 18; TEMP 97.6; O2SAT 100
[2016-10-12] MEDS ORDERED: traMADol HCL 50 MG TAB PO PRN (12:15)
[2016-10-12 13:48] LABS: AUTOMATED NEUTROPHIL # 3.2 TH/MM3 (1.8-7.7); BASOPHIL # 0.1 TH/MM3 (0-0.2); BASOPHIL % 0.9 % (0.0-2.0); EOSINOPHIL # 0.2 TH/MM3 (0-0.4); EOSINOPHIL % 1.7 % (0.0-4.0); HEMATOCRIT 35.8 % (39.0-51.0); LYMPH % 54.7 % (9.0-44.0); LYMPHOCYTE # 5.1 TH/MM3 (1.0-4.8); MEAN CELL VOLUME 86.7 FL (80.0-100.0); MEAN CORPUSCULAR HEMOGLOBIN 29.8 PG (27.0-34.0); MEAN CORPUSCULAR HGB CONC 34.4 % (32.0-36.0); MONO % 8.3 % (0.0-8.0); NEUT % 34.4 % (16.0-70.0); PLATELET COUNT 176 TH/MM3 (150-450); RED BLOOD COUNT 4.13 MIL/MM3 (4.50-5.90); WHITE BLOOD COUNT 9.2 TH/MM3 (4.0-11.0)
[2016-10-12 13:53] LABS: HEMO FLAGS AUTO DIFF
[2016-10-12 14:12] LABS: ANION GAP 6 MEQ/L (5-15); AST (GOT) 23 U/L (15-37); BICARBONATE 29.7 MEQ/L (21.0-32.0); BLOOD UREA NITROGEN 11 MG/DL (7-18); CHLORIDE 104 MEQ/L (98-107); GLOMERULAR FILTRATION RATE 79 ML/MIN (>89); SODIUM (NA) 140 MEQ/L (136-145)
[2016-10-12 14:17] LABS: ALKALINE PHOSPHATASE 84 U/L (45-117); ALT (GPT) 79 U/L (12-78); TOTAL BILIRUBIN ADULT 0.6 MG/DL (0.2-1.0)
[2016-10-12 14:18] LABS: PLATELET ESTIMATE SMEAR NORMAL (NORMAL); PLATELET MORPHOLOGY NORMAL (NORMAL); SCAN/DIFF AUTO DIFF CONFIRMED
[2016-10-12] MEDS ORDERED: PANTOPRAZOLE SOD 40 MG DELAYED RELEASE TAB PO SCH (14:45)
--- NOTE | 2016-10-12 14:45 | HHI.PR ---
Subjective Remarks Follow up for abdominal pain, hemoperitoneum. The patient reports feeling better today, still has some discomfort in the epigastric area. Denies any nausea/vomiting. Denies any diarrhea/melena/hematochezia. He is seen s/p EGD, he has tolerated oral intake. Objective Vitals Vital Signs Date Time Temp Pulse Resp B/P (MAP) Pulse Ox O2 Delivery O2 Flow Rate FiO2 10/12/16 12:10 97.6 71 18 120/64 (82) 100 10/12/16 11:32 97.5 60 18 114/63 (80) 97 Room Air 10/12/16 11:11 97.1 64 18 124/67 (86) 98 10/12/16 07:34 98.0 61 18 118/61 (80) 99 10/12/16 05:36 98.4 61 16 127/74 (91) 100 10/12/16 01:00 77 16 118/61 (80) 97 Room Air 10/11/16 22:00 80 16 130/77 (94) 98 Room Air 10/11/16 20:08 99.1 88 18 125/68 (87) 97 I/O 10/11/16 10/11/16 10/11/16 10/12/16 10/12/16 10/12/16 06:59 14:59 22:59 06:59 14:59 22:59 Intake Total 1000 ml 300 ml Balance 1000 ml 300 ml Intake IV Total 1000 ml Other 300 ml Result Diagram: 10/12/16 1315 10/12/16 1315 Imaging Last Impressions Chest X-Ray 10/11/16 0000 Signed Impressions: Service Date/Time: Tuesday, October 11, 2016 20:05 - CONCLUSION: No acute disease. Kris Perez MD Abdomen/Pelvis CT 10/11/16 0000 Signed Impressions: Service Date/Time: Tuesday, October 11, 2016 23:11 - CONCLUSION: 1. Small amount of dense ascites concerning for hemoperitoneum. No definite evidence for active contrast extravasation to suggest active bleeding although arterial phase imaging was not performed. 2. No additional acute abnormality identified. 3. Splenomegaly. Findings were personally discussed with Dr. Rock at the time of this procedure. Balta Sanchez MD Objective Remarks GENERAL: Well-nourished, well-developed young male patient in NAD. SKIN: Warm and dry. No rash. HEENT: Normocephalic. Atraumatic.Pupils equal and round. Mucous membranes pink and moist. CARDIOVASCULAR: Regular rate and rhythm. S1, S2 noted. No murmur appreciated. RESPIRATORY: No accessory muscle use. Clear to auscultation. Breath sounds equal bilaterally. GASTROINTESTINAL: Abdomen soft, non-tender, nondistended. Normoactive bowel sounds x4. MUSCULOSKELETAL: No obvious deformities. Extremities without clubbing, cyanosis , or edema. NEUROLOGICAL: Awake and alert. No obvious cranial nerve deficits. Motor grossly within normal limits. Normal speech. PSYCHIATRIC: Appropriate mood and affect; insight and judgment normal. Medications and IVs Current Medications Medications (Trade) Dose Ordered Sig/Hilton Route Start Time Stop Time Status Last Admin (Tylenol) 650 mg Q4H PRN PO 10/12/16 03:45 (Zofran Inj) 4 mg Q6H PRN IVP 10/12/16 03:45 (Narcan Inj) 0.4 mg UNSCH PRN IV 10/12/16 03:45 (Ultram) 50 mg Q8H PRN PO 10/12/16 12:15 (Protonix) 40 mg DAILY PO 10/12/16 14:45 10/12/16 15:42 A/P Problem List: (1) Abdominal pain ICD Code: R10.9 - Unspecified abdominal pain Status: Acute Assessment and Plan 21-year-old male in a drug treatment program at [facility] who presented to ED for evaluation of abdominal pain Abdominal Pain: with history of NISA, on Zantac, presented with persistent epigastric pain/nausea/vomiting. Abdomen/pelvis CT with small amount of dense ascites concerning for hemoperitoneum; No definite evidence for active contrast extravasation to suggest active bleeding although arterial phase imaging was not done; Splenomegaly. - Consult gastroenterology - EGD performed, showed GERD, gastritis, and erosion in the distal esophagus; biopsies taken - Diet advanced to clear liquid - Started on protonix 40mg daily - Supportive treatment with IVF, antiemetics prn, pain control with tramadol prn Possible Hemoperitoneum: unclear etiology, no history of recent trauma - GI recommended General surgery evaluation Substance abuse - advised to continue in treatment - some drug seeking behaviors displayed - do not recommend narcotic administration - case management contacted [facility], reports patient can be released today Leukocytosis: WBC 11.4, minimally elevated - NS bolus x 1 liter given in ED - Repeat CBC showed improvement, WBC 9.2, resolved DVT Prophylaxis: low risk, ambulation Discharge Planning Possible discharge later today if cleared by general surgery. 1700hrs: Discussed with Dr. Spaulding, reports patient has large amount of stool in colon and has not had BM in 6-7 days. Otherwise, the patient can be discharged from surgical standpoint. 1720hrs: Discussed with Dr. Castano, recommended Miralax 2packets in gatorate every 1 hour [id number] or until has large BM. If patient has BM, he can be discharged from GI standpoint. Miralax ordered. Discussed with Ro LUKE. Will place conditional discharge orders if patient has BM tonight, he can be discharged. Discharge patient to home Condition on discharge: Improved Regular Diet as tolerated Ad Chantale activity Rx written: Protonix 40mg daily, Miralax daily Follow-up with primary care physician and gastroenterology Problem Qualifiers (1) Abdominal pain: Qualified Codes: R10.84 - Generalized abdominal pain Cristal Tovar PA-C Oct 12, 2016 2:45 pm
[2016-10-12 16:00] VITALS: BP 117/61; PULSE 70; RESP 18; TEMP 98.1; O2SAT 99
[2016-10-12] MEDS: POLYETHYLENE GLYCOL 17 GM PKG PO SCH ×2 (17:44→18:07)
[2016-10-12] MEDS ORDERED: POLY17S PO (17:57)
[2016-10-12] MEDS ORDERED: PANT40TA3 PO (17:57)
--- NOTE | 2016-10-12 17:58 | HHI.DCPOC ---
Discharge Care Plan Diagnosis: (1) Gastritis (2) Distal Esophageal Erosion Goals to Promote Your Health * To prevent worsening of your condition and complications * To maintain your health at the optimal level Directions to Meet Your Goals Take your medications as prescribed Follow your dietary instruction Follow activity as directed Keep your appointments as scheduled Take your immunizations and boosters as scheduled If your symptoms worsen call your PCP, if no PCP go to Urgent Care Center or Emergency Room Smoking is Dangerous to Your Health. Avoid second hand smoke Call the 24-hour hour crisis hotline for domestic abuse at Cristal Tovar PA-C Oct 12, 2016 5:58 pm
--- NOTE | 2016-10-12 18:29 | MB ---
cc: BERNARDO JURADO M.D., HAROLD H. MD DATE OF CONSULTATION 10/12/2016 REASON FOR CONSULTATION Intraperitoneal fluid, question hemoperitoneum. BRIEF HISTORY This is an unfortunate 21-year-old who apparently came here from [facility] due to a two day history of intermittent nausea, vomiting, dry heaves and severe onset of left upper quadrant pain. The patient denies any trauma. No falls. Not been hit. No motor vehicle crash, etc.. He says he has had reflux disease for a long time. Usually he just takes the Zantac as needed that took care of the problem. He had a CT scan which showed fluid, a relative small amount of fluid around the liver, the spleen and pelvis with the density concerning for hemoperitoneum. No etiology of the hemoperitoneum was identified. No solid organ injuries. No extravasation of contrast was seen. The patient was evaluated by GI and upper endoscopy demonstrated some erosive esophagitis and gastritis. The patient indicates he has taken pills and medications on an empty stomach and this certainly could have created additional increased irritation. The patient also admits to me when I communicate to him that his colon is full of stool on CT scan that he has not had a bowel movement in 6-7 days. This also could be the etiology of his abdominal pain and nausea with emesis. The patient has been at [facility] due to drug use and abuse and in the chart it mentions Xanax, cocaine and marijuana. The patient also smokes daily but denies alcohol abuse. 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 He says he has messed up enough now that he has done with putting himself in situation where he is prone to use drugs. The patient indicates his abdominal discomfort is nearly completely resolved at this time. ALLERGIES NO KNOWN DRUG ALLERGIES. MEDICATIONS Routine medications include: Zoloft 100 mg daily. PAST SURGICAL HISTORY He says he has had some dental disease, had a few teeth pulled but denies any other abdominal surgeries. SOCIAL HISTORY He is a smoker. He has had multi drug abuse but denies IV drug use. Denies alcohol and his social situation is as discussed above. REVIEW OF SYSTEMS Really significant for the dry heaves, nausea, abdominal pain and constipation. PHYSICAL EXAMINATION GENERAL: On physical examination he is a young, otherwise healthy appearing male who is pleasant and cooperative with the examination. VITAL SIGNS: Temperature is 98.1, pulse 70, respiratory rate 18, blood pressure 117/61, O2 sats 99%. HEENT: Normocephalic, atraumatic. His pupils are 3-4 mm round and reactive and equal. His sclerae are anicteric. His oropharynx is clear without mucosal lesions. The majority of his teeth are in good condition. NECK: His neck is supple without adenopathy. He has a midline trachea. No jugular distension. No thyromegaly. LUNGS: His lungs are clear and equal anteriorly bilaterally. CARDIOVASCULAR: His heart sounds are regular without obvious murmur, rub or gallop. He is thin, muscular. ABDOMEN: Soft and nondistended. He is completely nontender to palpation. He has no obvious scars or hernias. He has normal bowel sounds and he has no abdominal bruits. EXTREMITIES: His extremities are thin. He has no cyanosis, clubbing or edema. He has got equal radial and dorsalis pedis pulses. NEUROLOGIC: He is awake, alert, oriented. He has equal bilateral processor solid propellant strength and no gross motor or sensory deficit. LABORATORY DATA His laboratory values demonstrated a white count 11.4 on admission, now down to 9.2. Hemoglobin went from 59 to 12.3. His platelet count went from 204 to 176. He had an INR 1.1, a PTT of 26.4. Potassium was 4. His creatinine is 1.15. He had a lipase of 72 and an albumin of 3.2. Mildly elevated liver enzymes AST and ALT have decreased, AST from 48-23, ALT from 117-79. Total bilirubin and alkaline phosphatase were normal. His hepatitis panel is pending. IMAGING Are as discussed above and additionally a chest x-ray which showed no acute disease. FAMILY HISTORY No one with bleeding disorders. No Von Willebrand's disorders. He also denies excessive bleeding from cuts or scratches when flossing his teeth. ASSESSMENT A 21-year-old from [facility] due to polysubstance abuse who has undergone detoxication and supposed to be discharged home today. He is going to live with his mother. He had a couple of days of nausea with emesis, dry heaves and abdominal pain. He has erosive esophagitis and gastritis with a long history of gastroesophageal reflux disease. He also has a colon full of stool and has not moved his bowels in 6 or 7 days. RECOMMENDATIONS My recommendations is to continue proton pump inhibitor medications for his gastritis, esophagitis. Avoid taking medications on an empty stomach. I have instructed he should drink more water. He should eat more fresh fruits and leafy vegetables. He should use gentle laxatives like milk of magnesia and even progress to things like MiraLax to get his bowels functioning normally on a daily basis. He should follow up with gastroenterology due to his gastritis and esophagitis and his apparent constipation. I have encouraged him to discontinue or decrease the amount of cigarettes he smokes, to avoid alcohol and drugs otherwise he will return. Should he develop acute onset of severe abdominal pain, especially if it is associated with lightheadedness or diaphoresis, he needs to return to the emergency department on an emergency basis. I am unsure as the etiology of the fluid in his abdominal cavity whether it is blood or other fluid is unclear. I see no reason from a surgical standpoint given his hemodynamic stability and is a benign abdominal exam. The patient understands and appreciated my visit, was very pleasant and cooperative. MD LEONIDES Alvares/YOLANDA /4:52 PM /6:11 PM
[2016-10-13] MEDS ORDERED: POLYETHYLENE GLYCOL 17 GM PKG PO SCH (09:00)
== END 2016-10-12 20:03 | disposition home or self-care (01) ==
LOC: NEPD 19:42 → NEDA 10-12 01:08 → NEPGCP 10-12 04:43
PROVIDERS: ADMIT Hospitalist; ATTEND Hospitalist
DX: K22.10 Ulcer of esophagus without bleeding (principal); K29.70 Gastritis, unspecified, without bleeding; I50.9 Heart failure, unspecified; K21.9 Gastro-esophageal reflux disease without esophagitis; R18.8 Other ascites; F17.210 Nicotine dependence, cigarettes, uncomplicated
CPT/HCPCS: 00740; 43239; 71010; 74177; 80053; 83690; 85007; 85025; 85027; 85610; 85730; 88305; 99285; G0378; J2250; J3010; J7030; Q9967; 80074